=== PATIENT | female | born 1960 | race Caucasian/White ===

== ENCOUNTER 2018-06-17 10:42 | Emergency (ER) | payer OTHER, MEDICAID, SELFPAY ==
[2018-06-17] VITALS (10 sets, daily range): BP systolic 97–147; BP diastolic 59–91; PULSE 87–109; RESP 17–27; TEMP 37.4; O2SAT 76–92; BMI 26.4
--- NOTE | 2018-06-17 11:06 | ED_ITS ---
HPI - SOB/Dyspnea General Chief Complaint: Shortness of Breath/Dyspnea Stated Complaint: SOB Decreased Oxygen Time Seen by Provider: 06/17/18 11:05 Source: EMS Mode of arrival: EMS History of Present Illness Patient is a 57-year-old female who presents with confusion and shortness of breath. She is chronically on home oxygen. She was found to have an oxygen level of 58% at the [facility]. Staff noticed that she was not quite acting right. She says that her oxygen tank is not working at home. His although she is not able to give good history. She is awake alert talking and following come pants. She denies any chest pain. She says she has a history of COPD. She is supposed to be on 4 L at home. MD Complaint: shortness of breath Related Data Home oxygen amount: 4 liters Home Medications Medication Instructions Recorded Confirmed acetaminophen [Mapap 325 ng PO PRN PRN 06/17/18 06/17/18 (acetaminophen)] albuterol sulfate [ProAir HFA] 1 puff INHALATION PRN PRN 06/17/18 06/17/18 aspirin 81 mg PO QPM 06/17/18 06/17/18 atorvastatin 20 mg PO QPM 06/17/18 06/17/18 benzonatate 200 mg PO TID PRN 06/17/18 06/17/18 buspirone 15 mg PO BID 06/17/18 06/17/18 cyclobenzaprine 5 mg PO BID PRN 06/17/18 06/17/18 gabapentin 600 mg PO TID PRN 06/17/18 06/17/18 hydroxyzine pamoate 50 mg PO QID 06/17/18 06/17/18 ibuprofen 600 mg PO TID PRN 06/17/18 06/17/18 propranolol 1 dose PO PRN PRN 06/17/18 06/17/18 venlafaxine 150 mg PO DAILY 06/17/18 06/17/18 Allergies Allergy/AdvReac Type Severity Reaction Status Date / Time Iodine-Containing Allergy Unknown Uncoded 10/30/17 13:03 Review of Systems Review of Systems All systems reviewed & are unremarkable except as noted in HPI and below Constitutional Denies chills, Denies lethargy and Reports weakness Cardiovascular Denies chest pain, Denies chest pain at rest and Denies edema Respiratory Reports as per HPI Gastrointestinal Gastrointestinal: Denies abdominal pain, Denies change in bowel habits, Denies diarrhea, Denies nausea and Denies vomiting Musculoskeletal Denies back pain, Denies muscle weakness, Denies numbness and Denies tingling Integumentary/Breasts Denies pruritus, Denies erythema, Denies rash and Denies wounds Neurologic Denies numbness, Denies tingling and Reports weakness PFSH Medical History COPD (chronic obstructive pulmonary disease) (Acute) Social History Smoking Status: Former smoker Exam Initial Vital Signs Initial Vital Signs: Vital Signs Temperature 99.4 F 06/17/18 10:56 Pulse Rate 109 H 06/17/18 10:56 Respiratory Rate 22 06/17/18 10:56 Pulse Oximetry 76 L 06/17/18 10:56 Const General: in distress, anxious and frail appearing (Chronically ill) Orientation: alert and awake Neck Neck: normal visual inspection Chest Chest: normal inspection of the chest and normal palpation of entire chest wall Resp Effort & Inspection: normal respiratory effort and able to speak in complete sentences Auscultation: diminished lung sounds (Bilaterally) and wheezes (My neuro bilaterally) Cardio Rate: regular rate Rhythm: regular rhythm Heart Sounds: S1 normal and S2 normal Skin General: no rashes or lesions noted, No jaundice and No petechiae Neuro General: alert, oriented x3, gait normal and no focal motor deficits Speech: speech normal Course Orders Ordered: ED Orders 06/17/18 11:25 Consult to Respiratory Therapy Evaluate & Treat Arterial Blood Gas Stat EKG-12 Lead Stat High flow/High humidity nasal Stat 06/17/18 11:26 XR chest 1V Stat 06/17/18 11:53 Lactate (Lactic Acid) Stat Partial Thromboplastin Time Stat Prothrombin Time INR Stat 06/17/18 12:21 B Type Natriuretic Peptide Stat Blood Culture Stat Complete Blood Count AUTO DIFF Stat Comprehensive Metabolic Panel Stat Magnesium Stat Procalcitonin Stat Troponin & CK Cardiac Panel Stat 06/17/18 12:34 CT angio chest PE protocol Stat Discontinued Medications Albuterol/Ipratropium (Duoneb) 3 ml INH NOW ONE Stop: 06/17/18 11:26 Last Admin: 06/17/18 12:17 Dose: 3 ml Methylprednisolone (Solu-Medrol 125 Mg Vial) 125 mg IV NOW ONE Stop: 06/17/18 11:26 Last Admin: 06/17/18 12:15 Dose: 125 mg Vital Signs - 8 hr 06/17/18 11:30 06/17/18 12:00 06/17/18 12:30 Pulse Rate 104 H 98 H 101 H Respiratory Rate 19 27 H Blood Pressure [Right Arm] 138/59 L 112/91 H Pulse Oximetry 91 88 L 06/17/18 13:00 06/17/18 14:30 06/17/18 14:37 Pulse Rate 98 H 87 Respiratory Rate 19 18 Blood Pressure [Right Arm] 111/63 147/84 H Pulse Oximetry 90 L 92 89 L 06/17/18 16:00 06/17/18 17:03 Pulse Rate 95 H Respiratory Rate 21 Blood Pressure [Right Arm] 106/89 Pulse Oximetry 88 L 92 MDM - SOB/Dyspnea Lab Data Attestation: I reviewed the patient's lab results. Result diagrams: 06/17/18 12:21 06/17/18 12:21 Lab Results 06/17/18 06/17/18 06/17/18 Range/Units 11:25 11:53 11:53 WBC (4.5-11.0) X10^3/uL RBC (4.0-5.2) X10^6/uL Hgb (12.0-16.0) g/dL Hct (36-46) % MCV (80-100) fL MCH (26-34) PG MCHC (30-36) % RDW (11.6-14.8) % Plt Count (150-400) X10^3/uL Neut % (Auto) (50-75) % Lymph % (Auto) (25-40) % [place] % (Auto) (3-14) % Eos % (Auto) (2-4) % Baso % (Auto) (0-2) % Neut # (Auto) (0780-7288) /uL PT 13.4 H (10.1-12.7) SECONDS INR 1.2 (0.9-1.3) APTT 30 (26.4-36.2) SECONDS ABG pH 7.33 L (7.35-7.45) ABG pCO2 62.4 H* (35-45) mmHg ABG pO2 54 L (80-100) mmHg ABG HCO3 33 H (22-26) mmol/L ABG Total CO2 35 H (21-31) mmol/L ABG O2 Saturation 84 L* (95-100) % ABG Base Excess 7.0 H (-2-2) mmol/L FiO2 40 Sodium (137-145) mmol/L Potassium (3.4-5.1) mmol/L Chloride (98-107) mmol/L Carbon Dioxide (22-32) mmol/L BUN (7-17) mg/dL Creatinine (0.52-1.04) mg/dL Estimated GFR (>60) mL/min BUN/Creatinine Ratio (6-22) Glucose (70-100) mg/dL Lactate 1.2 (0.7-2.1) mmol/L Calcium (8.4-10.2) mg/dL Magnesium (1.6-2.3) mg/dL Total Bilirubin (0.2-1.3) mg/dL AST (14-36) IU/L ALT (9-52) IU/L Alkaline Phosphatase (38-126) U/L Total Creatine Kinase (30-135) U/L CK-MB (CK-2) CK-MB (CK-2) Rel Index Troponin I (0.01-0.034) ng/mL B-Natriuretic Peptide (<100) Total Protein (6.3-8.2) g/dL Albumin (3.5-5.0) g/dL Globulin (1.7-4.1) g/dL Albumin/Globulin Ratio (1.0-2.8) Procalcitonin (<0.5) ng/mL 06/17/18 06/17/18 06/17/18 Range/Units 12:21 12:21 12:21 WBC 12.6 H (4.5-11.0) X10^3/uL RBC 4.58 (4.0-5.2) X10^6/uL Hgb 12.2 (12.0-16.0) g/dL Hct 38.0 (36-46) % MCV 82.9 (80-100) fL MCH 26.6 (26-34) PG MCHC 32.0 (30-36) % RDW 17.9 H (11.6-14.8) % Plt Count 331 (150-400) X10^3/uL Neut % (Auto) 83.4 H (50-75) % Lymph % (Auto) 8.8 L (25-40) % [place] % (Auto) 6.0 (3-14) % Eos % (Auto) 1.3 L (2-4) % Baso % (Auto) 0.5 (0-2) % Neut # (Auto) 77694 H (3505-9240) /uL PT (10.1-12.7) SECONDS INR (0.9-1.3) APTT (26.4-36.2) SECONDS ABG pH (7.35-7.45) ABG pCO2 (35-45) mmHg ABG pO2 (80-100) mmHg ABG HCO3 (22-26) mmol/L ABG Total CO2 (21-31) mmol/L ABG O2 Saturation (95-100) % ABG Base Excess (-2-2) mmol/L FiO2 Sodium 139 (137-145) mmol/L Potassium 4.1 (3.4-5.1) mmol/L Chloride 99 (98-107) mmol/L Carbon Dioxide 30 (22-32) mmol/L BUN 15 (7-17) mg/dL Creatinine 0.70 (0.52-1.04) mg/dL Estimated GFR > 60.0 (>60) mL/min BUN/Creatinine Ratio 21.4 (6-22) Glucose 84 (70-100) mg/dL Lactate (0.7-2.1) mmol/L Calcium 8.3 L (8.4-10.2) mg/dL Magnesium 1.8 (1.6-2.3) mg/dL Total Bilirubin 0.5 (0.2-1.3) mg/dL AST 27 (14-36) IU/L ALT 22 (9-52) IU/L Alkaline Phosphatase 117 (38-126) U/L Total Creatine Kinase 25 L (30-135) U/L CK-MB (CK-2) TNP CK-MB (CK-2) Rel Index TNP Troponin I < 0.012 (0.01-0.034) ng/mL B-Natriuretic Peptide 125.0 H (<100) Total Protein 6.9 (6.3-8.2) g/dL Albumin 3.5 (3.5-5.0) g/dL Globulin 3.4 (1.7-4.1) g/dL Albumin/Globulin Ratio 1.0 (1.0-2.8) Procalcitonin 0.11 (<0.5) ng/mL Imaging Data CT PE: Radiologist's impression: PROCEDURE: CT ANGIO CHEST PE PROTOCOL INDICATIONS: HYPOXIA TECHNIQUE: After the administration of intravenous contrast, 2 mm thick sections acquired from the pulmonary apices to the posterior costophrenic angles. 3-dimensional maximum intensity projection (MIP) coronal and sagittal reformats were then acquired through the thorax. For radiation dose reduction, the following was used: automated exposure control, adjustment of mA and/or kV according to patient size. COMPARISON: [facility], CR, CHEST 1 VIEW, 05/07/2007, 0:11. [facility], CR, XR CHEST 1V, 06/17/2018, 12:15. FINDINGS: Image quality: Excellent. Pulmonary arteries: Pulmonary arteries are normal in size, and demonstrate no intraluminal filling defects to suggest central pulmonary embolism. Lungs and pleura: Diffuse alveolar and interstitial type infiltrates are seen. Mild air bronchograms are seen involving the lower lobes. No pneumothorax or pleural effusions are seen. The central airways are patent. Mediastinum: Heart size is normal, without pericardial effusion. Enlarged mediastinal lymph nodes are seen. There is a group of lymph nodes seen within the subcarinal region measuring 3.3 x 2 cm, when measured together. An enlarged group of right paratracheal lymph nodes are seen measuring 2.5 by 1.7 cm. An enlarged prevascular group of lymph nodes can be seen measuring 2.3 x 2.1 cm. An enlarged group of right perihilar lymph nodes are seen measuring 3.3 x 2.1 cm, when measured together. Mildly enlarged left perihilar lymph nodes are seen. Thoracic aorta is normal in caliber and enhancement. Atherosclerotic calcification is noted. Esophagus is normal in caliber. There is a small hiatal hernia. Bones and chest wall: No suspicious bony lesions. Age-appropriate bony degenerative changes are seen. Ribs and thoracic spine appear intact throughout. Thyroid gland demonstrates no significant CT abnormality. No axillary or supraclavicular adenopathy. Abdomen: Visualized upper abdominal solid organs appear normal in the early arterial phase of enhancement. IMPRESSION: Negative for pulmonary embolism. Prominent widespread interstitial and alveolar infiltrates are seen. The appearance is nonspecific, although concern is raised for infection and inflammatory change. A portion of the appearance may be secondary to pulmonary edema. Enlarged mediastinal lymph nodes are seen, which are likely reactive in nature. Differential diagnosis includes neoplasm, however. Incidental note is made of: Small hiatal hernia Dictated by: Jose Cordero M.D. on 06/17/2018 at 13:11 Chest x-ray: Radiologist's impression: PROCEDURE: XR CHEST 1V INDICATIONS: hypoxic TECHNIQUE: One view of the chest was acquired. COMPARISON: [facility], CR, XR CHEST 2VW, 08/24/2015, 20:49. [facility], CR, CHEST 1 VIEW, 05/07/2007, 0:11. FINDINGS: Surgical changes and devices: None. Lungs and pleura: There is increased appearance of pulmonary vascularity. Patchy areas of increased opacity are present throughout the lungs bilaterally. Mediastinum: Mediastinal contours appear normal. Heart size is normal. Bones and chest wall: No suspicious bony lesions. Overlying soft tissues appear unremarkable. IMPRESSION: Increased vascularity suggestive of edema. Overall appearance of patchy bilateral opacities could represent focal edema. However, underlying airspace disease such as pneumonia is suspected. Dictated by: Sandra Velez M.D. on 06/17/2018 at 12:31 ECG Data Attestation: I personally reviewed and interpreted this ECG as follows: Prior ECG tracings: not available for review Interpretation: Sinus rhythm rate [address] changes or T-wave inversions, P are normal 159 QTC 446 MDM Narrative Medical decision making narrative: Patient's oxygen level does improve with nasal cannula the distal quite low. She seems anxious is at 1st which could be due to the hypoxia. She is given breathing treatment which does seem to help. All over time she gets much more comfortable. Her IV blew in the CT for PE She does have a portable oxygen tank with her which does seem to be working appropriately. Respiratory has made arrangements for [facility] is to test the concentrator at home. Patient says that the light was beeping she turned off and turned back on and it seemed to get better. Not sure if patient is compliant with her oxygen. Her mental status has improved greatly is over the course in the ED. Her workup is negative. She has oxygen at home with made arrangements to make sure it is working appropriately at this time patient will be discharged home. Discharge Plan Departure Patient Disposition: Home Clinical Impression: Hypoxia Discharge Date/Time: 06/17/18 17:05 Interventions: ED Discharge Assessment Last Done: 06/17/18 17:04 Instructions: Chronic Obstructive Pulmonary Disease Activity Restrictions/Additional Instructions: *You have been diagnosed with hypoxia *What to do: Wear your oxygen at all times as recommended. Call [facility] when you get home for them to check you're machine *Continue to take medications as directed *Follow up with your primary care provider in 2-3 days *Return to ER if you should have confusion, shortness of breath or any new, worsening or concerning symptoms Prescriptions: No Action acetaminophen [Mapap (acetaminophen)] 325 mg tablet 325 ng PO PRN PRN (Reason: pain) RF: 0 atorvastatin 20 mg tablet 20 mg PO QPM RF: 0 benzonatate 200 mg capsule 200 mg PO TID PRN (Reason: Cough) RF: 0 venlafaxine 150 mg capsule,extended release 24hr 150 mg PO DAILY RF: 0 hydroxyzine pamoate 50 mg capsule 50 mg PO QID RF: 0 aspirin 81 mg tablet,delayed release (DR/EC) 81 mg PO QPM RF: 0 propranolol 10 mg tablet 1 dose PO PRN PRN (Reason: unknown) RF: 0 gabapentin 300 mg capsule 600 mg PO TID PRN (Reason: pain) RF: 0 ibuprofen 600 mg tablet 600 mg PO TID PRN (Reason: pain) RF: 0 albuterol sulfate [ProAir HFA] 90 mcg/actuation HFA aerosol inhaler 1 puff Inhalation PRN PRN (Reason: Shortness Of Breath) RF: 0 buspirone 15 mg tablet 15 mg PO BID RF: 0 cyclobenzaprine 5 mg tablet 5 mg PO BID PRN (Reason: Spasms) RF: 0
--- NOTE | 2018-06-17 11:26 | DI.RAD.S_ITS ---
PROCEDURE: XR CHEST 1V INDICATIONS: hypoxic TECHNIQUE: One view of the chest was acquired. COMPARISON: [facility], CR, XR CHEST 2VW, 08/24/2015, 20:49. [facility], CR, CHEST 1 VIEW, 05/07/2007, 0:11. FINDINGS: Surgical changes and devices: None. Lungs and pleura: There is increased appearance of pulmonary vascularity. Patchy areas of increased opacity are present throughout the lungs bilaterally. Mediastinum: Mediastinal contours appear normal. Heart size is normal. Bones and chest wall: No suspicious bony lesions. Overlying soft tissues appear unremarkable. IMPRESSION: Increased vascularity suggestive of edema. Overall appearance of patchy bilateral opacities could represent focal edema. However, underlying airspace disease such as pneumonia is suspected. Dictated by: Sandra Velez M.D. on 06/17/2018 at 12:31 Approved by: Sandra Velez M.D. on 06/17/2018 at 12:32
[2018-06-17 11:43] LABS: HCO3 ABG 33 mmol/L (22-26); PCO2 ABG 62.4 mmHg (35-45); PO2 ABG 54 mmHg (80-100); TCO2 ABG 35 mmol/L (21-31); pH ABG 7.33 (7.35-7.45)
[2018-06-17 11:44] LABS: Oxygen Saturation ABG 84 % (95-100)
[2018-06-17 11:45] LABS: Fractionated Inspired Oxygen 40
[2018-06-17 11:58] LABS: INR 1.2 (0.9-1.3); Prothrombin Time 13.4 SECONDS (10.1-12.7)
[2018-06-17 12:01] LABS: PTT Partial Thromboplastin Tim 30 SECONDS (26.4-36.2)
[2018-06-17 12:03] LABS: Lactate (Lactic Acid) 1.2 mmol/L (0.7-2.1)
[2018-06-17] MEDS: methylPREDNISolone 125 MG/2 ML VIAL IV (12:15)
[2018-06-17] MEDS: ALBUTEROL/IPRATROPIUM 3 ML AMPUL INH (12:17)
--- NOTE | 2018-06-17 12:34 | DI.CT.S_ITS ---
PROCEDURE: CT ANGIO CHEST PE PROTOCOL INDICATIONS: HYPOXIA TECHNIQUE: After the administration of intravenous contrast, 2 mm thick sections acquired from the pulmonary apices to the posterior costophrenic angles. 3-dimensional maximum intensity projection (MIP) coronal and sagittal reformats were then acquired through the thorax. For radiation dose reduction, the following was used: automated exposure control, adjustment of mA and/or kV according to patient size. COMPARISON: [facility], , CHEST 1 VIEW, 05/07/2007, 0:11. [facility], , XR CHEST 1V, 06/17/2018, 12:15. FINDINGS: Image quality: Excellent. Pulmonary arteries: Pulmonary arteries are normal in size, and demonstrate no intraluminal filling defects to suggest central pulmonary embolism. Lungs and pleura: Diffuse alveolar and interstitial type infiltrates are seen. Mild air bronchograms are seen involving the lower lobes. No pneumothorax or pleural effusions are seen. The central airways are patent. Mediastinum: Heart size is normal, without pericardial effusion. Enlarged mediastinal lymph nodes are seen. There is a group of lymph nodes seen within the subcarinal region measuring 3.3 x 2 cm, when measured together. An enlarged group of right paratracheal lymph nodes are seen measuring 2.5 by 1.7 cm. An enlarged prevascular group of lymph nodes can be seen measuring 2.3 x 2.1 cm. An enlarged group of right perihilar lymph nodes are seen measuring 3.3 x 2.1 cm, when measured together. Mildly enlarged left perihilar lymph nodes are seen. Thoracic aorta is normal in caliber and enhancement. Atherosclerotic calcification is noted. Esophagus is normal in caliber. There is a small hiatal hernia. Bones and chest wall: No suspicious bony lesions. Age-appropriate bony degenerative changes are seen. Ribs and thoracic spine appear intact throughout. Thyroid gland demonstrates no significant CT abnormality. No axillary or supraclavicular adenopathy. Abdomen: Visualized upper abdominal solid organs appear normal in the early arterial phase of enhancement. IMPRESSION: Negative for pulmonary embolism. Prominent widespread interstitial and alveolar infiltrates are seen. The appearance is nonspecific, although concern is raised for infection and inflammatory change. A portion of the appearance may be secondary to pulmonary edema. Enlarged mediastinal lymph nodes are seen, which are likely reactive in nature. Differential diagnosis includes neoplasm, however. Incidental note is made of: Small hiatal hernia Dictated by: Jose Cordero M.D. on 06/17/2018 at 13:11 Approved by: Jose Cordero M.D. on 06/17/2018 at 13:18
[2018-06-17 12:42] LABS: Add Manual Diff / Slide Review NO; Basophils Percent Auto 0.5 % (0-2); Eosinophils Percent Auto 1.3 % (2-4); Hemoglobin 12.2 g/dL (12.0-16.0); Lymphocytes Percent Auto 8.8 % (25-40); Mean Corpuscular Hemoglobin 26.6 PG (26-34); Mean Corpuscular Volume 82.9 fL (80-100); Neutrophils Absolute Auto 10500 /uL (3000-5900); Neutrophils Percent Auto 83.4 % (50-75); Platelet Count 331 X10^3/uL (150-400); Red Blood Cell Count 4.58 X10^6/uL (4.0-5.2); Red Cell Distribution Width 17.9 % (11.6-14.8); White Blood Cell Count 12.6 X10^3/uL (4.5-11.0)
[2018-06-17 12:55] LABS: Alanine Aminotransferase 22 IU/L (9-52); Albumin 3.5 g/dL (3.5-5.0); Alkaline Phosphatase 117 U/L (38-126); Aspartate Aminotransferase 27 IU/L (14-36); BUN Creatinine Ratio 21.4 (6-22); Bilirubin Total 0.5 mg/dL (0.2-1.3); Blood Urea Nitrogen 15 mg/dL (7-17); Calcium 8.3 mg/dL (8.4-10.2); Carbon Dioxide 30 mmol/L (22-32); Chloride 99 mmol/L (98-107); Creatine Kinase 25 U/L (30-135); Estimated Glomerular Filt Rate > 60.0 mL/min (>60); Globulin 3.4 g/dL (1.7-4.1); Glucose 84 mg/dL (70-100); HEMOLYSIS < 15 (0-50); Magnesium 1.8 mg/dL (1.6-2.3); Potassium 4.1 mmol/L (3.4-5.1); Sodium 139 mmol/L (137-145); Total Protein 6.9 g/dL (6.3-8.2)
[2018-06-17 13:08] LABS: Troponin I < 0.012 ng/mL (0.01-0.034)
[2018-06-17 13:19] LABS: Procalcitonin 0.11 ng/mL (<0.5)
--- NOTE | 2018-06-17 14:35 | PC.NURSE ---
Pt back from CT. She is on 3L nasal cannula and oxygen sat is 88%
--- NOTE | 2018-06-17 16:16 | PC.NURSE ---
Respiratory therapy in with patient. Assisted patient with her home oxygen tank. She is not breathing through her nose while using it. RT brought over another oxygen tank for her to go home with, which does keep her oxygen saturation above 85% (which is her usual).
--- NOTE | 2018-06-17 17:05 | PC.NURSE ---
1309 Patient's IV infiltrated in CT after contrast was initiated. Per security alarm technician, it happened immediately upon initiation of the infusion. Provider notified. Ngoc from DI called to initiate new IV access. Hand is not painful, per patient. Some swelling is noted. Instructed patient to elevate and ice hand as needed, per provider.
== END 2018-06-17 17:05 | disposition home or self-care (01) ==
PROVIDERS: Emergency Provider Emergency Medicine
DX: R09.02 Hypoxemia (principal)
CPT/HCPCS: 36591; 36600; 71045; 71275; 80053; 82550; 82805; 83605; 83735; 83880; 84145; 84484; 85025; 85610; 85730; 87040; 93005; 93041; 96374; 99285; J2930; Q9967